=== PATIENT | male | born 1955 | race African-American/Black ===

== ENCOUNTER 2017-02-16 20:56 | Emergency (ER) | payer MEDICAID ==
[~2017-02-16] VITALS: Ht 188 cm; Wt 113.4 kg
[2017-02-16 21:00] VITALS: BP 131/95
== END 2017-02-16 22:35 | disposition home or self-care (01) ==
LOC: ER 21:05
DX: S62.637A Displaced fracture of distal phalanx of left little finger, initial encounter for closed fracture (principal); S60.222A Contusion of left hand, initial encounter; Z88.1 Allergy status to other antibiotic agents; W20.8XXA Other cause of strike by thrown, projected or falling object, initial encounter; Y93.89 Activity, other specified; Y92.89 Other specified places as the place of occurrence of the external cause; Y99.8 Other external cause status
CPT/HCPCS: 29130; 73130; 99284; A4606; Z7610

== ENCOUNTER 2021-07-10 14:15 | Emergency (ER) | payer MEDICAID ==
[~2021-07-10] VITALS: Ht 188 cm; Wt 114.3 kg
--- NOTE | 2021-07-10 14:24 | NUR ---
RADHA WALTERS FROM HOME "WAS MOVING FURNITURE-SYNCOPAL EPISODE". TO ER BED 3, HOOKED TO MONITOR, CHANGED TO HOSP GOWN, WARM BLANKET PROVIDED, PATIENT AAO x 4. BREATHING EVEN AND UNLABORED. AWAITING MD REYEZ
[2021-07-10] MEDS ORDERED: IV NS 0.9% 1,000 ML BAG IV ONE (14:30)
--- NOTE | 2021-07-10 14:36 | NUR ---
LAB AT BEDSIDE
--- NOTE | 2021-07-10 14:52 | NUR ---
BEHAVIORAL MODIFICATION ASSISTANT AT BEDSIDE
--- NOTE | 2021-07-10 15:58 | NUR ---
LAB AT BEDSIDE FOR 2ND ATTEMPT BLOOD DRAW.
[2021-07-10 16:09] LABS: BASOPHILS % (AUTO) 0.2 % (0.0-2.0); HEMATOCRIT 48 % (39-51); HEMOGLOBIN 15.7 g/dL (13.5-17.5); LYMPHOCYTES % (AUTO) 12.1 % (20.0-44.0); MEAN CORPUSCULAR HGB CONC 33 g/dl (31.0-36.0); MEAN CORPUSCULAR VOLUME 88 fL (80-96); MONOCYTES # (AUTO) 0.6 K/uL (0.1-1.30); MONOCYTES % (AUTO) 6.7 % (2.0-12.0); NEUTROPHILS # (AUTO) 6.9 K/uL (1.8-8.9); PLATELET COUNT (AUTO) 120 K/uL (150-450); RED BLOOD CELL COUNT(AUTO) 5.42 MIL/uL (4.5-6.0); WHITE BLOOD COUNT (AUTO) 8.6 K/uL (4.3-11.0)
[2021-07-10 16:52] LABS: ALANINE AMINOTRANSFERASE 23 U/L (12-78); ALBUMIN 3.5 g/dL (3.4-5.0); ALKALINE PHOSPHATASE 66 U/L (46-116); ASPARTATE AMINOTRANSFERASE 15 U/L (15-37); BILIRUBIN,DIRECT 0.1 mg/dL (0.0-0.2); BILIRUBIN,TOTAL 0.5 mg/dL (0.2-1.0); CALCIUM, SERUM 8.6 mg/dL (8.5-10.1); CARBON DIOXIDE 25 mmol/L (21-32); CHLORIDE 106 mmol/L (98-107); GLUCOSE 84 mg/dL (74-106); POTASSIUM 4.8 mmol/L (3.5-5.1); SODIUM SERUM 135 mmol/L (136-145); TOTAL PROTEIN, SERUM 6.9 g/dL (6.4-8.2); UREA NITROGEN, BLOOD 18 mg/dL (7-18)
[2021-07-10] MEDS ORDERED: IOHEXOL-350 100 ML VIAL IV ONE (17:05)
--- NOTE | 2021-07-10 19:51 | NUR ---
PT BACK FROM CT SCAN , RECONNECTED TO MONITOR. DENIES ANY PAIN AT THIS TIME. WILL CONTINUE TO MONITOR.
--- NOTE | 2021-07-10 20:38 | NUR ---
NM:LUNG V/Q WAS COMPLETED. TECH:RB
[2021-07-10 22:32] VITALS: BP 119/81
== END 2021-07-10 22:32 | disposition home or self-care (01) ==
LOC: ER 14:21
DX: R55 Syncope and collapse (principal); N17.9 Acute kidney failure, unspecified; Z86.711 Personal history of pulmonary embolism; Z88.8 Allergy status to other drugs, medicaments and biological substances
CPT/HCPCS: 36415; 71045; 78582; 80048; 80076; 82962; 84484 ×2; 85025; 85378; 93005; 96360; 99285; A9540; A9567; J7030; Q9967